=== PATIENT | male | born 1960 | race African-American/Black ===

== ENCOUNTER → 2017-04-01 | Outpatient (CLI) | payer OTHER ==
[~2017-04-01] MED LIST: LORTAB 7.5-5001 TAB PO; PHENERGAN PO
--- NOTE | ~2017-04-01 | CT137 ---
[facility] A Service of [facility] RADIOLOGY TEXT RESULTS PATIENT: JOSE A AVILA LOCATION: [facility] : 56 UNIT #: [id number] AGE: [address]: Shama Latham SEX: M ORDER DR: [id number] [facility] [address] [place], [place] [address] [id number] O MR#: [id number] [facility] #: [id number] NAME: JOSE A AVILA : 1960 SEX: M STUDY DATE/TIME: 04/01/2017 13:28 UNIT: [facility] ROOM: STUDY DESCRIPTION: CT Lung Screening annual Attending Physician: Shama Latham A.P.R.N. Referring Physician: Shama Latham A.P.R.N. Ordering Physician: Shama Latham A.P.R.N. Primary Care Physician: Shama Latham A.P.R.N. MEDICAL IMAGING REPORT This report is preliminary unless electronic signature is present EXAM CT lung cancer screening. INDICATIONS Lung cancer screening, 46 pack year smoking history. PROCEDURE Unenhanced low-dose CT of the chest performed per lung cancer screening protocol. This CT exam was performed with one or more of the following radiation dose reduction techniques: automatic exposure control, adjustment of mA and/or kV according to patient size, and iterative reconstruction. COMPARISON 02/12/2016 FINDINGS 2 mm subpleural nodule right lower lobe is stable. No other nodules. No adenopathy. Evaluation of the included upper abdomen difficult secondary to low dose technique and body habitus. No definite abnormality seen. No aggressive appearing bone lesion. IMPRESSION 1. Stable 2 mm nodule right lower lobe. No new nodules. 2. Lung-RADS category 2 benign findings. Per the ACR Lung-RADS recommendation suggest patient continue with annual low-dose lung cancer screening. Dictated by... Travis Barrera M.D. THIS IS AN ELECTRONICALLY VERIFIED REPORT [facility] A Service of [facility] RADIOLOGY TEXT RESULTS PATIENT: [id number] 56 UNIT #: [id number] AGE: [address]: Shama Latham SEX: M ORDER DR: Travis Barrera M.D. at 04/03/2017 9:56 PM Kyle TD: 04/01/2017 15:37 JOB #: [id number] MEDICAL IMAGING REPORT Page 1 of 1 COPY
== END | disposition home or self-care (01) ==
LOC: CCAT 03-29 09:00
DX: F17.210 Nicotine dependence, cigarettes, uncomplicated (principal); R91.1 Solitary pulmonary nodule
CPT/HCPCS: G0297